=== PATIENT | female | born 1935 | race Asian ===

== ENCOUNTER 2019-02-20 07:05 | Inpatient (IN) | payer OTHER, MEDICARE ==
[~2019-02-20] VITALS: Ht 149.9 cm; Wt 38.2 kg
[2019-02-20] VITALS (10 sets, daily range): BP systolic 117–148; BP diastolic 66–80
--- NOTE | 2019-02-20 07:24 | NUR ---
PT WITH REPORTS OF BRIGHT RED BLOOD COMING FROM RECTUM OVER THE LAST 3 DAYS, PT STATES SHE HAS NO HX OF THIS NO HX OF ETOH ABUSE. PT STATES SHE NORMALLY HAS DIARRHEA, BUT THIS AM THE BLEEDING BECAME WORSE. PT HYPOTENSIVE PER [facility], 80/50S GIVEN 250CC NS, PT NOW 105/34. PT IS ALERT AND ORIENTED X4, ANSWERING ALL QUESTIONS APPROPRIATELY. PT TO CARD MONITOR, BP, CONT PULSE OX.
[2019-02-20] MEDS ORDERED: PLEASE ENTER ALLERGIES MC SCH (07:30)
[2019-02-20] MEDS ORDERED: SODIUM CHLORIDE 0.9% 1,000ML IVBOLUS ONE (07:30)
[2019-02-20] MEDS ORDERED: SODIUM CHLORIDE FLUSH 10ML SYR IVF ONE (07:30)
[2019-02-20] MEDS ORDERED: PLEASE ENTER HEIGHT AND WEIGHT MC SCH (07:30)
--- NOTE | 2019-02-20 07:49 | NUR ---
LABS DRAWN AND PENDING
[2019-02-20 07:52] LABS: INTERNATIONAL NORMALIZED RATIO 0.95 (0.93-1.1)
[2019-02-20 07:54] LABS: ALANINE AMINOTRANSFERASE 19 U/L (12-78); ALBUMIN 2.6 g/dL (3.4-5.0); ANION GAP 7 mmol/L (5-15); CALCIUM 7.5 mg/dL (8.5-10.1); CHLORIDE 111 mmol/L (98-107); CREATININE 0.65 mg/dL (0.55-1.02); MEAN CORPUSCULAR HGB CONC 32.4 g/dL (32.4-35.8); MEAN CORPUSCULAR VOLUME 92.5 fL (80-100); MEAN PLATELET VOLUME 6.1 fL (7.4-10.4); PLATELET COUNT 352 x10^3/uL (130-400); RED BLOOD COUNT 1.88 x10^6/uL (3.82-5.3); RED CELL DISTRIBUTION WIDTH 13.7 % (9.6-15.2)
[2019-02-20 07:56] LABS: ALKALINE PHOSPHATASE 131 U/L (45-117); BILIRUBIN,TOTAL 0.4 mg/dL (0.2-1.0); TOTAL PROTEIN 5.2 g/dL (6.4-8.2)
--- NOTE | 2019-02-20 08:01 | NUR ---
CRITICAL LAB RESULTS REPORTED TO PROVIDER. PT UPDATED ON POC, CONSENT FOR BLOOD TRANSFUSION SIGNED
[2019-02-20 08:03] LABS: BASOPHILS % (AUTO) 0 % (0-1); EOSINOPHILS # (AUTO) 0.01 x10^3/uL (0-0.4); EOSINOPHILS % (AUTO) 0 % (1-7); LYMPHOCYTES # (AUTO) 0.46 x10^3/uL (1-3.4); LYMPHOCYTES % (AUTO) 5 % (22-44); MD SCAN; MONOCYTES # (AUTO) 0.36 x10^3/uL (0.2-0.8); MONOCYTES % (AUTO) 4 % (2-9); NEUTROPHILS # (AUTO) 7.81 x10^3/uL (1.8-6.8); NEUTROPHILS % (AUTO) 90 % (42-75)
[2019-02-20] MEDS ORDERED: OMNIPAQUE 350 MG/ML, 100ML BOTTLE ONE (09:16)
[2019-02-20 09:44] LABS: TROPONIN I 0.021 ng/mL (0.000-0.045)
[2019-02-20] MEDS ORDERED: ACETAMINOPHEN 325 MG TABLET PO PRN (10:30)
[2019-02-20] MEDS ORDERED: ONDANSETRON 2MG/ML, 2ML IVPush PRN (10:30)
[2019-02-20] MEDS ORDERED: morphine SULFATE 10 MG/ML, 1ML IVPush PRN (10:30)
[2019-02-20] MEDS ORDERED: LEVOTHYROXINE 100 MCG INJ IVPush SCH (11:00)
[2019-02-20] MEDS: PANTOPRAZOLE 40 MG IV IVPush SCH ×2 (12:33→20:39)
[2019-02-20] MEDS ORDERED: LEVO50TA5 PO (12:49)
[2019-02-20] MEDS ORDERED: GOLYTELY 4,000ML ORAL.SOL PO ONE (14:00)
[2019-02-20] MEDS: LEVOTHYROXINE 100 MCG INJ IVPush SCH (14:21)
[2019-02-20 17:38] LABS: TROPONIN I 0.037 ng/mL (0.000-0.045)
[2019-02-20 18:01] LABS: CLOSTRIDIUM DIFFICILE ANTIGEN NEGATIVE; CLOSTRIDIUM DIFFICILE TOXIN NEGATIVE (Negative)
[2019-02-20 23:11] LABS: TROPONIN I 0.147 ng/mL (0.000-0.045)
[2019-02-21 02:14] VITALS: BP 115/65
[2019-02-21 06:02] LABS: CHLORIDE 110 mmol/L (98-107)
[2019-02-21 06:05] LABS: BASOPHILS # (AUTO) 0.01 x10^3/uL (0-0.1); BASOPHILS % (AUTO) 0 % (0-1); EOSINOPHILS # (AUTO) 0.11 x10^3/uL (0-0.4); EOSINOPHILS % (AUTO) 2 % (1-7); LYMPHOCYTES # (AUTO) 0.74 x10^3/uL (1-3.4); LYMPHOCYTES % (AUTO) 14 % (22-44); MD NO; MEAN CORPUSCULAR HEMOGLOBIN 30.8 pg (27.0-34.8); MEAN CORPUSCULAR HGB CONC 33.9 g/dL (32.4-35.8); MEAN PLATELET VOLUME 6.3 fL (7.4-10.4); MONOCYTES # (AUTO) 0.53 x10^3/uL (0.2-0.8); MONOCYTES % (AUTO) 10 % (2-9); NEUTROPHILS # (AUTO) 3.86 x10^3/uL (1.8-6.8); NEUTROPHILS % (AUTO) 74 % (42-75); PLATELET COUNT 340 x10^3/uL (130-400); RED BLOOD COUNT 3.22 x10^6/uL (3.82-5.3); RED CELL DISTRIBUTION WIDTH 14.9 % (9.6-15.2)
[2019-02-21 06:13] LABS: ALANINE AMINOTRANSFERASE 20 U/L (12-78); ALBUMIN 2.5 g/dL (3.4-5.0); ALKALINE PHOSPHATASE 142 U/L (45-117); ANION GAP 8 mmol/L (5-15); BILIRUBIN,TOTAL 3.6 mg/dL (0.2-1.0); CALCIUM 7.4 mg/dL (8.5-10.1); CREATININE 0.63 mg/dL (0.55-1.02); TOTAL PROTEIN 5.1 g/dL (6.4-8.2); TROPONIN I 0.106 ng/mL (0.000-0.045)
[2019-02-21 07:04] VITALS: BP 124/58
[2019-02-21] MEDS ORDERED: POTASSIUM CHLORIDE 40 MEQ in SODIUM CHLORIDE 0.9% 100 ML IV ONE (07:30)
[2019-02-21] MEDS ORDERED: POTASSIUM CHLORIDE 40 MEQ in SODIUM CHLORIDE 0.9% 500 ML IV ONE (07:30)
[2019-02-21] MEDS: LEVOTHYROXINE 100 MCG INJ IVPush SCH (08:32)
[2019-02-21] MEDS: PANTOPRAZOLE 40 MG IV IVPush SCH ×2 (08:32→20:28)
[2019-02-21] MEDS ORDERED: MIDAZOLAM 1 MG/ML, 2ML ONE (08:38)
[2019-02-21] MEDS ORDERED: FENTANYL PF 100 MCG/2ML ONE (08:38)
[2019-02-21] MEDS ORDERED: FENTANYL PF 100 MCG/2ML IV PRN (09:00)
[2019-02-21] MEDS ORDERED: hydrALAzine 20 MG/ML, 1ML IV PRN (09:00)
[2019-02-21] MEDS ORDERED: ONDANSETRON 2MG/ML, 2ML IV PRN (09:00)
[2019-02-21] MEDS ORDERED: LABETALOL 5MG/ML, 20ML IV PRN (09:00)
[2019-02-21] MEDS ORDERED: MORPHINE SULFATE 4 MG/ML, 1ML IVPush PRN (09:00)
[2019-02-21] MEDS ORDERED: LEVOTHYROXINE 100 MCG INJ IVPush SCH (09:00)
[2019-02-21] MEDS ORDERED: PROMETHAZINE 25 MG/ML, 1ML IV PRN (09:00)
[2019-02-21] MEDS ORDERED: ACETAMINOPHEN 325 MG TABLET PO PRN (09:00)
[2019-02-21] MEDS ORDERED: EPHEDRINE 50 MG/ML, 1ML ONE (09:39)
[2019-02-21 13:20] VITALS: BP 122/72
[2019-02-21 18:30] VITALS: BP 107/67
[2019-02-21 19:48] LABS: MICROSCOPIC AUTO
[2019-02-21 19:49] LABS: CULTURE INDICATED? YES
[2019-02-22 00:12] VITALS: BP 109/62
[2019-02-22 06:09] LABS: BASOPHILS % (AUTO) 0 % (0-1); EOSINOPHILS # (AUTO) 0.18 x10^3/uL (0-0.4); EOSINOPHILS % (AUTO) 2 % (1-7); LYMPHOCYTES # (AUTO) 0.59 x10^3/uL (1-3.4); LYMPHOCYTES % (AUTO) 8 % (22-44); MD NO; MEAN CORPUSCULAR HEMOGLOBIN 30.1 pg (27.0-34.8); MEAN CORPUSCULAR VOLUME 91.1 fL (80-100); MEAN PLATELET VOLUME 5.9 fL (7.4-10.4); MONOCYTES # (AUTO) 0.58 x10^3/uL (0.2-0.8); MONOCYTES % (AUTO) 8 % (2-9); NEUTROPHILS # (AUTO) 6.31 x10^3/uL (1.8-6.8); NEUTROPHILS % (AUTO) 82 % (42-75); PLATELET COUNT 351 x10^3/uL (130-400); RED BLOOD COUNT 3.02 x10^6/uL (3.82-5.3); RED CELL DISTRIBUTION WIDTH 15.1 % (9.6-15.2)
[2019-02-22 06:23] LABS: ANION GAP 6 mmol/L (5-15); CALCIUM 7.8 mg/dL (8.5-10.1); CHLORIDE 110 mmol/L (98-107)
[2019-02-22 06:28] LABS: CREATININE 0.69 mg/dL (0.55-1.02); TROPONIN I 0.124 ng/mL (0.000-0.045)
[2019-02-22] MEDS ORDERED: LEVOTHYROXINE 50 MCG TABLET PO SCH (07:30)
[2019-02-22 07:51] VITALS: BP 127/74
[2019-02-22] MEDS: PANTOPRAZOLE 40 MG IV IVPush SCH (09:03)
[2019-02-22 14:20] VITALS: BP 116/65
[2019-02-22] MEDS ORDERED: OMEP-110 PO (14:32)
[2019-02-22] MEDS ORDERED: CEFD300C37 PO (14:41)
== END 2019-02-22 15:42 | disposition home or self-care (01) | DRG 378 ==
LOC: ED 08:09 → 4EST 08:10 → SUATTDRO 08:10
PROVIDERS: ADMIT Internal Medicine; ATTEND Internal Medicine
PROC: 30233N1 Transfusion of Nonautologous Red Blood Cells into Peripheral Vein, Percutaneous Approach (ICD-10-PCS; 2019-02-20)
PROC: 0DB58ZX Excision of Esophagus, Via Natural or Artificial Opening Endoscopic, Diagnostic (ICD-10-PCS; 2019-02-21)
PROC: 0DJD8ZZ Inspection of Lower Intestinal Tract, Via Natural or Artificial Opening Endoscopic (ICD-10-PCS; principal; 2019-02-21 08:30)
DX: K62.5 Hemorrhage of anus and rectum (principal); D62 Acute posthemorrhagic anemia; N39.0 Urinary tract infection, site not specified; E03.9 Hypothyroidism, unspecified; E88.09 Other disorders of plasma-protein metabolism, not elsewhere classified; K20.9 Esophagitis, unspecified; K22.70 Barrett's esophagus without dysplasia; K44.9 Diaphragmatic hernia without obstruction or gangrene; K52.9 Noninfective gastroenteritis and colitis, unspecified; K62.4 Stenosis of anus and rectum; Z79.82 Long term (current) use of aspirin; Z82.0 Family history of epilepsy and other diseases of the nervous system; Z82.3 Family history of stroke; Z82.49 Family history of ischemic heart disease and other diseases of the circulatory system; Z85.048 Personal history of other malignant neoplasm of rectum, rectosigmoid junction, and anus; Z87.891 Personal history of nicotine dependence; Z90.49 Acquired absence of other specified parts of digestive tract; Z92.3 Personal history of irradiation
CPT/HCPCS: 36415; 36430; 74177; 80048; 80053; 81001; 83735; 84100; 84443; 84484; 85014; 85018; 85025; 85610; 85730; 86850; 86900; 86923; 87077; 87086; 87186; 87324; 88305; 93005; 93306; 99285; G0378; J2250; J3010; J3480; Q9967; C9113; J7030; J7040; P9016

== ENCOUNTER 2019-03-13 08:14 | Outpatient (CLI) | payer OTHER, MEDICARE ==
[~2019-03-13 08:14] MED LIST: CEFD300C37 PO; LEVO50TA5 PO; OMEP-110 PO
== END 2019-03-13 23:59 | disposition home or self-care (01) ==
LOC: RAD 08:14
PROVIDERS: ATTEND Internal Medicine
DX: Z02.9 Encounter for administrative examinations, unspecified (principal)

== ENCOUNTER 2019-03-23 09:33 | Emergency (ER) | payer OTHER, MEDICARE ==
[~2019-03-23] VITALS: Ht 147.3 cm; Wt 38.2 kg
[2019-03-23 10:23] LABS: BASOPHILS # (AUTO) 0.02 x10^3/uL (0-0.1); BASOPHILS % (AUTO) 0 % (0-1); EOSINOPHILS # (AUTO) 0.07 x10^3/uL (0-0.4); EOSINOPHILS % (AUTO) 1 % (1-7); LYMPHOCYTES % (AUTO) 15 % (22-44); MD NO; MEAN CORPUSCULAR HEMOGLOBIN 27.4 pg (27.0-34.8); MEAN CORPUSCULAR HGB CONC 31.5 g/dL (32.4-35.8); MEAN PLATELET VOLUME 6.4 fL (7.4-10.4); MONOCYTES % (AUTO) 11 % (2-9); NEUTROPHILS # (AUTO) 4.02 x10^3/uL (1.8-6.8); NEUTROPHILS % (AUTO) 73 % (42-75); PLATELET COUNT 411 x10^3/uL (130-400); RED CELL DISTRIBUTION WIDTH 17.3 % (9.6-15.2)
[2019-03-23] MEDS ORDERED: SODIUM CHLORIDE FLUSH 10ML SYR IVF ONE (10:30)
[2019-03-23] MEDS ORDERED: SODIUM CHLORIDE 0.9% 1,000ML IVBOLUS ONE (10:30)
[2019-03-23 10:35] LABS: ALBUMIN 3.1 g/dL (3.4-5.0); ANION GAP 8 mmol/L (5-15); CHLORIDE 111 mmol/L (98-107); CREATININE 0.82 mg/dL (0.55-1.02)
[2019-03-23 11:13] LABS: CLOSTRIDIUM DIFFICILE ANTIGEN NEGATIVE; CLOSTRIDIUM DIFFICILE TOXIN NEGATIVE (Negative)
[2019-03-23] MEDS ORDERED: LOPERAMIDE 2 MG CAPSULE PO ONE (11:30)
--- NOTE | 2019-03-23 11:42 | NUR ---
task rn: pt moved to [id number] PER CHARGE.
[2019-03-23] MEDS ORDERED: LOPERAMIDE 2 MG CAPSULE ONE (11:44)
[2019-03-23 11:48] VITALS: BP 122/61
== END 2019-03-23 12:30 | disposition home or self-care (01) ==
LOC: ED 12:00
DX: R19.7 Diarrhea, unspecified (principal); E86.0 Dehydration; Z85.038 Personal history of other malignant neoplasm of large intestine; Z86.39 Personal history of other endocrine, nutritional and metabolic disease
CPT/HCPCS: 36415; 80048; 82040; 85025; 87324; 96360; 96361; 99283; J7030